=== PATIENT | male | born 1995 | race American Indian/Alaskan Native ===

== ENCOUNTER 2025-04-01 16:09 | Emergency (ER) | payer MEDICAID, SELFPAY ==
[2025-04-01] VITALS (10 sets, daily range): BP systolic 126–154; BP diastolic 71–97; PULSE 79–95; RESP 16–20; TEMP 36.8–36.9; O2SAT 92–98; BMI 28.0
--- NOTE | 2025-04-01 16:17 | XR_ITS ---
Examination: Shoulder,left, 3 views Technique: Shoulder AP internal rotation, AP external rotation, Y view shoulder, 3 views Exam date and time :April 01, 2025, 1638 hours INDICATIONS: Patient fell the day with injury to left shoulder, left shoulder pain. FINDINGS: Anterior subcoracoid shoulder dislocation. No shoulder fracture. Impression: Anterior subcoracoid shoulder dislocation.
--- NOTE | 2025-04-01 18:01 | XR_ITS ---
Examination: Shoulder,left, 3 views Technique: Shoulder AP internal rotation, AP external rotation, Y view shoulder, 3 views Exam date and time :April 01, 2025 1852 hours INDICATIONS: Postreduction shoulder dislocation. FINDINGS: [id number] osteoarthritis glenohumeral joint Successful reduction shoulder dislocation No fracture IMPRESSION: Satisfactory reduction shoulder dislocation
[2025-04-01] MEDS: SODIUM CHLORIDE 0.9% 1000 ML 1,000 ML 999 ML IV (18:05)
[2025-04-01] MEDS: KETAMINE 50 MG/ML VIAL 10 ML 40 MG IVP ×2 (18:10→18:14)
[2025-04-01] MEDS: PROPOFOL INJ 10 MG/ML VIAL 20 ML 40 MG IV (18:11)
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
--- NOTE | 2025-04-01 18:34 | EDNOTE_ITS ---
Emergency Room Addendum Addendum Narrative: Dislocation Reduction Procedure Note? Left Shoulder The patient or patient business center representative gave consent after being informed that the risks of this procedure include but are not limited to damaging bones and nearby structures like nerves and arteries and that the benefits include the aligning bones and/or joints to allow for better chance of healing and avoiding the risks associated with spinal and general anesthesia and surgery.Pre procedural neurovascular functioning was checked.? Using either local anesthetic or sedation via the procedural sedation protocol, adequate analgesia of the dislocation was obtained. Dislocation was reduced using the following technique:? traction/counter traction.? After manipulation the dislocation was noted to have a more normal anatomic appearance. Sling, immobilizer was applied. Neurovascular functioning was checked and found to be intact. The patient tolerated the procedure well and there were no complications.? Post application splint/strapping note: After application of the splint/strap, I checked it and found adequate immobilization of the joint and intact distal neurovascular functioning. Definitive dislocation care was performed in the ED, the patient was instructed to follow up with primary care in 5-7 days.? Procedural Sedation Note: Propofol/Ketamine: A pre-sedation evaluation of the patient was performed and is documented on the conscious sedation flowsheet. The procedure was explained to the patient. Consent was obtained. The patient had continuous telemetry, pulse oximetry, and serial blood pressure checks in accordance with policy and as recorded in the conscious sedation flowsheet. Supplemental oxygen was present. Advanced airway support equipment was present in the room. The patient was adequately sedated. The patient was observed on monitors with nursing supervision until sedative effects resolved. A post sedation evaluation of the patient was performed and is on the conscious sedation flowsheet.? I was directly involved and monitored the patient for at least 20 minutes starting from time of administration of medications, involving face to face monitoring and ending when my personal contact ended. Informed Consent Sedation: The patient or patient business center representative gave consent after being informed that the risks included but were not limited to stopping breathing, vomiting and aspirating stomach contents into the lungs and having an unexpected reaction to the medication and the benefits include allowing the performance of a normally painful procedure with little or no discomfort and often with amnesia to the procedure as well. The patient tolerated the procedure well and there were no complications.?
== END 2025-04-01 20:58 | disposition home or self-care (01) ==
PROVIDERS: Emergency Provider Emergency Medicine
DX: S43.085A Other dislocation of left shoulder joint, initial encounter (principal); V18.0XXA Pedal cycle driver injured in noncollision transport accident in nontraffic accident, initial encounter; Y93.55 Activity, bike riding
CPT/HCPCS: 23650; 73030; 99283; J2704; J7030